=== PATIENT | female | born 1940 | race Caucasian/White ===

== ENCOUNTER 2023-09-14 14:06 | Inpatient (IN) | payer MEDICARE ==
[~2023-09-14] VITALS: Ht 152.4 cm; Wt 64.0 kg
[2023-09-14] MEDS ORDERED: HYDROCODONE/APAP 5/325MG TABLET ONE (16:22)
[2023-09-14] MEDS ORDERED: LOSA50TA39 PO (16:23)
[2023-09-14] MEDS ORDERED: DULO60CA45 PO (16:23)
[2023-09-14] MEDS ORDERED: ROSU5TAB PO (16:23)
[2023-09-14] MEDS ORDERED: ONDANSETRON HCL/PF 4 MG/2 ML VIAL IVP PRN (17:00)
[2023-09-14] MEDS ORDERED: ACETAMINOPHEN 325 MG TABLET PO PRN (17:00)
[2023-09-14] MEDS ORDERED: HYDROCODONE/APAP 5/325MG TABLET PO ONE (17:00)
[2023-09-14] MEDS ORDERED: Z GUARD REMEDY 4 OZ OINT TP PRN (17:00)
[2023-09-14] MEDS ORDERED: MAG HYDROX/AL HYDROX/SIMETH 30 ML UDC PO PRN (17:00)
[2023-09-14] MEDS ORDERED: HYDROMORPHONE INJ 2 MG/ML DISP.SYRIN IV PRN (17:00)
[2023-09-14] MEDS ORDERED: ZOLPIDEM TARTRATE 5 MG TABLET PO PRN (17:00)
[2023-09-14] MEDS ORDERED: MAGNESIUM HYDROXIDE 30 ML UDC PO PRN (17:00)
[2023-09-14 18:00] VITALS: BP 141/94; TEMP 98.8; O2SAT 94
[2023-09-14 20:00] VITALS: BP 143/104; TEMP 97.5; O2SAT 95
[2023-09-14] MEDS: ATORVASTATIN 10 MG TABLET PO SCH (22:22)
[2023-09-14] MEDS: HYDROCODONE/APAP 5/325MG TABLET PO PRN (22:23)
[2023-09-15 01:46] VITALS: BP 142/95
[2023-09-15] MEDS: HYDROMORPHONE 1 MG/1 ML DISP.SYRIN IV PRN (01:55)
[2023-09-15] MEDS: IV NS 0.9% 1,000 ML IV PRN ×2 (01:55→16:40)
[2023-09-15 07:22] LABS: BASOPHILS % (AUTO) 0.3 % (0.0-2.0); EOSINOPHILS % (AUTO) 0.4 % (0.0-6.0); HEMATOCRIT 42 % (33-45); HEMOGLOBIN 14.5 g/dL (11.5-14.8); LYMPHOCYTES # (AUTO) 1.3 K/uL (0.8-4.8); LYMPHOCYTES % (AUTO) 12.4 % (20.0-44.0); MEAN CORPUSCULAR HEMOGLOBIN 32 PG (26.0-33.0); MEAN CORPUSCULAR HGB CONC 35 g/dl (31.0-36.0); MEAN CORPUSCULAR VOLUME 92 fL (82-100); MONOCYTES # (AUTO) 0.8 K/uL (0.1-1.30); MONOCYTES % (AUTO) 7.9 % (2.0-12.0); NEUTROPHILS # (AUTO) 8.4 K/uL (1.8-8.9); PLATELET COUNT (AUTO) 226 K/uL (150-450); RED BLOOD CELL COUNT(AUTO) 4.56 MIL/uL (4.0-5.2); RED CELL DISTRIBUTION WIDTH 13.7 % (11.5-15.0); WHITE BLOOD COUNT (AUTO) 10.6 K/uL (4.3-11.0)
[2023-09-15 07:27] LABS: CALCIUM, SERUM 9.5 mg/dL (8.5-10.1); CREATININE 0.9 mg/dL (0.6-1.3); MAGNESIUM 1.8 mg/dL (1.8-2.4); PHOSPHORUS 3.6 mg/dL (2.5-4.9); POTASSIUM 3.5 mmol/L (3.5-5.1)
[2023-09-15] MEDS: DULOXETINE HCL 30 MG CAPSULE.DR PO SCH (09:15)
[2023-09-15] MEDS: LOSARTAN POTASSIUM 50 MG TABLET PO SCH (09:16)
[2023-09-15 11:20] LABS: APPEARANCE,URINE CLEAR (CLEAR); BILIRUBIN,URINE NEGATIVE (NEGATIVE); BLOOD, URINE 1+ Ery/uL (NEGATIVE); COLOR,URINE YELLOW (YELLOW); KETONES,URINE NEGATIVE (NEGATIVE); LEUKOCYTE ESTERASE ,URINE 1+ (NEGATIVE); NITRITE, URINE NEGATIVE (NEGATIVE); PH,URINE 6.5 (5.0-8.0); PROTEIN,URINE NEGATIVE (NEGATIVE); UGLUCOSE NEGATIVE (NEGATIVE); UROBILINOGEN,URINE 0.2 EU/dL (0.2)
[2023-09-15 11:27] LABS: ADD URINE CULTURE YES; BACTERIA,URINE Rare /HPF (None Seen); SQUAMOUS EPITHELIAL CELL,UR Few /HPF (None Seen)
[2023-09-15] MEDS: HYDROCODONE/APAP 5/325MG TABLET PO PRN (13:07)
[2023-09-15] MEDS: CEFTRIAXONE 1 G in IV D5W 50 ML IV SCH (13:07)
[2023-09-15] MEDS: HYDROCODONE/APAP 10/325MG TABLET PO PRN (18:38)
[2023-09-15 20:00] VITALS: BP 133/78; TEMP 97.2; O2SAT 94
[2023-09-15 20:38] VITALS: BP 160/79; TEMP 97.2; O2SAT 94
[2023-09-15] MEDS: ATORVASTATIN 10 MG TABLET PO SCH (21:36)
[2023-09-16] MEDS: HYDROMORPHONE 1 MG/1 ML DISP.SYRIN IV PRN ×2 (01:32→17:21)
[2023-09-16] MEDS: IV NS 0.9% 1,000 ML IV PRN ×2 (04:20→18:20)
[2023-09-16 08:00] VITALS: BP 155/92; TEMP 98.4; O2SAT 92
[2023-09-16] MEDS: DULOXETINE HCL 30 MG CAPSULE.DR PO SCH (08:45)
[2023-09-16] MEDS: LOSARTAN POTASSIUM 50 MG TABLET PO SCH (08:45)
[2023-09-16] MEDS: CEFTRIAXONE 1 G in IV D5W 50 ML IV SCH (11:06)
[2023-09-16 16:00] VITALS: BP 163/83; TEMP 98.1; O2SAT 94
[2023-09-16 20:00] VITALS: BP 141/71; TEMP 98.4; O2SAT 94
[2023-09-16] MEDS: ATORVASTATIN 10 MG TABLET PO SCH (22:46)
[2023-09-17] MEDS: IV NS 0.9% 1,000 ML IV PRN (06:28)
[2023-09-17 08:30] VITALS: BP 151/96; TEMP 98.4; O2SAT 99
[2023-09-17] MEDS: LOSARTAN POTASSIUM 50 MG TABLET PO SCH (09:10)
[2023-09-17] MEDS: DULOXETINE HCL 30 MG CAPSULE.DR PO SCH (09:11)
[2023-09-17] MEDS: HYDROMORPHONE 1 MG/1 ML DISP.SYRIN IV PRN (10:28)
[2023-09-17] MEDS: CEFTRIAXONE 1 G in IV D5W 50 ML IV SCH (12:19)
[2023-09-17] MEDS ORDERED: NITR100C15 PO (12:27)
[2023-09-17] MEDS: HYDROCODONE/APAP 10/325MG TABLET PO PRN (15:54)
[2023-09-17 16:00] VITALS: BP 127/84; TEMP 98.4; O2SAT 94
[2023-09-17 16:45] VITALS: BP 165/84
[2023-09-17] MEDS ORDERED: hydrALAZINE HCL 25 MG TABLET PO ONE (17:30)
[2023-09-17 18:00] VITALS: BP 155/75; TEMP 98.2; O2SAT 96
== END 2023-09-17 20:00 | disposition short-term general hospital (02) | DRG 536 ==
LOC: ER 14:08 → MED 17:41 → UNDODISIN 09-17 14:45
PROVIDERS: ADMIT Nurse Practitioner Acute Care; ATTEND Internal Medicine
DX: S32.592A Other specified fracture of left pubis, initial encounter for closed fracture (principal); N39.0 Urinary tract infection, site not specified; E78.5 Hyperlipidemia, unspecified; I10 Essential (primary) hypertension; N28.9 Disorder of kidney and ureter, unspecified; W10.1XXA Fall (on)(from) sidewalk curb, initial encounter; R26.89 Other abnormalities of gait and mobility; M51.36 Other intervertebral disc degeneration, lumbar region; Y93.9 Activity, unspecified; Y92.009 Unspecified place in unspecified non-institutional (private) residence as the place of occurrence of the external cause
CPT/HCPCS: 36415; 70450-TC; 71045-TC; 72125-TC; 72131-TC; 72192-TC; 73502; 80048-TC; 81001; 83735-TC; 84100-TC; 85025-TC; 87086-TC; 97110-TC; 97116-TC; 97530-TC; A4223; G0378; J0696; J1170; J7030; J7060

== ENCOUNTER 2023-11-11 20:35 | Inpatient (IN) | payer MEDICARE ==
[~2023-11-11] VITALS: Ht 152.4 cm; Wt 66.2 kg
[~2023-11-11 20:35] MED LIST: CIPR500T5 PO; DULO60CA45 PO; LOSA50TA39 PO; NITR100C15 PO; ROSU5TAB PO
[2023-11-11 21:07] LABS: BASOPHILS # (AUTO) 0.1 K/uL (0.0-0.2); BASOPHILS % (AUTO) 0.2 % (0.0-2.0); EOSINOPHILS % (AUTO) 0.1 % (0.0-6.0); HEMATOCRIT 36 % (33-45); HEMOGLOBIN 11.8 g/dL (11.5-14.8); LYMPHOCYTES # (AUTO) 0.4 K/uL (0.8-4.8); MEAN CORPUSCULAR HEMOGLOBIN 29 PG (26.0-33.0); MEAN CORPUSCULAR HGB CONC 33 g/dl (31.0-36.0); MEAN CORPUSCULAR VOLUME 88 fL (82-100); MONOCYTES # (AUTO) 0.5 K/uL (0.1-1.30); MONOCYTES % (AUTO) 1.3 % (2.0-12.0); NEUTROPHILS # (AUTO) 37.4 K/uL (1.8-8.9); NEUTROPHILS % (AUTO) 97.4 % (43.0-81.0); PLATELET COUNT (AUTO) 307 K/uL (150-450); RED BLOOD CELL COUNT(AUTO) 4.05 MIL/uL (4.0-5.2); RED CELL DISTRIBUTION WIDTH 15.8 % (11.5-15.0)
[2023-11-11 21:12] LABS: WHITE BLOOD COUNT (AUTO) 38.4 K/uL (4.3-11.0)
[2023-11-11 21:16] LABS: CALCIUM, SERUM 9.5 mg/dL (8.5-10.1); CARBON DIOXIDE 18 mmol/L (21-32); CHLORIDE 96 mmol/L (98-107); CREATININE 1.7 mg/dL (0.6-1.3); GLUCOSE 168 mg/dL (74-106); POTASSIUM 3.7 mmol/L (3.5-5.1); SODIUM SERUM 131 mmol/L (136-145); UREA NITROGEN, BLOOD 23 mg/dL (7-18)
[2023-11-11 21:20] LABS: INR 1.26 (0.91-1.10); PARTIAL THROMBOPLASTIN TIME 31.9 SEC (24.3-34.3); PROTHROMBIN TIME 12.9 SECS (9.2-11.1)
[2023-11-11 21:22] LABS: ALANINE AMINOTRANSFERASE 947 U/L (12-78); ALBUMIN 2.7 g/dL (3.4-5.0); ALKALINE PHOSPHATASE 528 U/L (46-116); BILIRUBIN,DIRECT 3.9 mg/dL (0.0-0.2); BILIRUBIN,TOTAL 4.9 mg/dL (0.2-1.0); TOTAL PROTEIN, SERUM 6.4 g/dL (6.4-8.2)
[2023-11-11 21:28] LABS: LACTIC ACID 8.6 mmol/L (0.4-2.0)
[2023-11-11] MEDS ORDERED: PIPERACI/TAZO 3.375GM/D5W 50ML PB IV ONE (21:28)
[2023-11-11] MEDS ORDERED: ONDANSETRON HCL/PF 4 MG/2 ML VIAL ONE (21:28)
[2023-11-11] MEDS ORDERED: MORPHINE SULFATE INJ 4 MG/ML DISP.SYRIN ONE (21:29)
[2023-11-11] MEDS: PIPERACILLIN /TAZOBACTAM 3.375 G in IV D5W 50 ML IV ONE (21:30)
[2023-11-11] MEDS: MORPHINE SULFATE INJ 2 MG/ML DISP.SYRIN IV ONE (21:30)
[2023-11-11] MEDS: ONDANSETRON HCL/PF - ER 4 MG/2 ML VIAL IV ONE (21:30)
[2023-11-11] MEDS: IV NS 0.9% 1,000 ML BAG IV ONE (21:30)
[2023-11-11 21:32] LABS: SERUM AMMONIA 17 umol/L (11-32)
[2023-11-11 22:04] LABS: ASPARTATE AMINOTRANSFERASE 897 U/L (15-37)
[2023-11-11 22:29] LABS: BAND % (MANUAL) 19 % (0.0-5.0); LYMPHOCYTES % (MANUAL) 1 % (16-48); MONOCYTES % (MANUAL) 2 % (0-11.0); NEUTROPHILS % (MANUAL) 78 (42-76)
[2023-11-11 22:30] LABS: PLATELET ESTIMATE ADEQU; THYROID STIMULATING HORMONE 3.198 uIU/mL (0.358-3.74)
[2023-11-11 22:39] LABS: APPEARANCE,URINE CLOUDY (CLEAR); BILIRUBIN,URINE 3+ (NEGATIVE); BLOOD, URINE TRACE-INTA Ery/uL (NEGATIVE); COLOR,URINE YELLOW (YELLOW); KETONES,URINE TRACE mg/dL (NEGATIVE); LEUKOCYTE ESTERASE ,URINE TRACE (NEGATIVE); NITRITE, URINE POSITIVE (NEGATIVE); PROTEIN,URINE 1+ mg/dl (NEGATIVE); UGLUCOSE NEGATIVE (NEGATIVE)
[2023-11-11 23:12] LABS: ADD URINE CULTURE YES; BACTERIA,URINE Many /HPF (None Seen); SQUAMOUS EPITHELIAL CELL,UR Moderate /HPF (None Seen)
[2023-11-11] MEDS ORDERED: MAG HYDROX/AL HYDROX/SIMETH 30 ML UDC PO PRN (23:30)
[2023-11-11] MEDS ORDERED: MAGNESIUM HYDROXIDE 30 ML UDC PO PRN (23:30)
[2023-11-11] MEDS ORDERED: Z GUARD REMEDY 4 OZ OINT TP PRN (23:30)
[2023-11-11] MEDS ORDERED: ONDANSETRON HCL/PF 4 MG/2 ML VIAL IVP PRN (23:30)
[2023-11-12] VITALS (48 sets, daily range): BP systolic 78–143; BP diastolic 41–87; TEMP 97.7–98.7; O2SAT 87–98
[2023-11-12] MEDS ORDERED: VANCOMYCIN 1 GM /D5W 250 ML PB IV ONE (01:17)
[2023-11-12] MEDS: VANCOMYCIN 1 GM in IV D5W 250ml IV ONE (01:18)
[2023-11-12] MEDS: IV NS 0.9% 1,000 ML IV PRN (01:18)
[2023-11-12] MEDS: PIPERACI/TAZO 3.375GM/D5W 50ML PB IV ONE (03:19)
[2023-11-12] MEDS: NOREPINEPHRINE 8MG/250ML RTU 250 ML IV ONE (03:21)
[2023-11-12] MEDS: NOREPINEPHRINE 8 MG in IV NS 0.9% 250 ML IV PRN (03:23)
[2023-11-12] MEDS: PIPERACILLIN /TAZOBACTAM 3.375 G in IV D5W 50 ML IV SCH (04:58)
[2023-11-12] MEDS: HYDROCORTISONE SOD SUCCINATE 100 MG/2 ML VIAL IV SCH (05:00)
[2023-11-12 07:49] LABS: BASOPHILS # (AUTO) 0.1 K/uL (0.0-0.2); BASOPHILS % (AUTO) 0.2 % (0.0-2.0); EOSINOPHILS # (AUTO) 0.2 K/uL (0.0-0.7); EOSINOPHILS % (AUTO) 0.5 % (0.0-6.0); HEMATOCRIT 31 % (33-45); HEMOGLOBIN 10.4 g/dL (11.5-14.8); LYMPHOCYTES # (AUTO) 0.9 K/uL (0.8-4.8); LYMPHOCYTES % (AUTO) 1.7 % (20.0-44.0); MEAN CORPUSCULAR HEMOGLOBIN 30 PG (26.0-33.0); MEAN CORPUSCULAR HGB CONC 34 g/dl (31.0-36.0); MEAN CORPUSCULAR VOLUME 89 fL (82-100); MONOCYTES # (AUTO) 1.7 K/uL (0.1-1.30); MONOCYTES % (AUTO) 3.1 % (2.0-12.0); NEUTROPHILS # (AUTO) 52.1 K/uL (1.8-8.9); NEUTROPHILS % (AUTO) 94.5 % (43.0-81.0); PLATELET COUNT (AUTO) 165 K/uL (150-450); RED BLOOD CELL COUNT(AUTO) 3.48 MIL/uL (4.0-5.2); RED CELL DISTRIBUTION WIDTH 15.4 % (11.5-15.0)
[2023-11-12 08:05] LABS: WHITE BLOOD COUNT (AUTO) 55.1 K/uL (4.3-11.0)
[2023-11-12 08:20] LABS: CALCIUM, SERUM 8.8 mg/dL (8.5-10.1); CARBON DIOXIDE 19 mmol/L (21-32); CHLORIDE 100 mmol/L (98-107); CREATININE 1.8 mg/dL (0.6-1.3); GLUCOSE 198 mg/dL (74-106); POTASSIUM 4.1 mmol/L (3.5-5.1); SODIUM SERUM 134 mmol/L (136-145); UREA NITROGEN, BLOOD 27 mg/dL (7-18)
[2023-11-12 08:24] LABS: HDL CHOLESTEROL 14 mg/dL (40-60); LDL 9 mg/dL (0-99); TRIGLYCERIDES 136 mg/dL (30-150)
[2023-11-12 08:29] LABS: LACTIC ACID 3.1 mmol/L (0.4-2.0)
[2023-11-12 08:32] LABS: ALANINE AMINOTRANSFERASE 767 U/L (12-78); ALBUMIN 2.3 g/dL (3.4-5.0); ALKALINE PHOSPHATASE 327 U/L (46-116); ASPARTATE AMINOTRANSFERASE 727 U/L (15-37); BILIRUBIN,DIRECT 3.7 mg/dL (0.0-0.2); BILIRUBIN,TOTAL 4.2 mg/dL (0.2-1.0); MAGNESIUM 1.7 mg/dL (1.8-2.4); PHOSPHORUS 4.1 mg/dL (2.5-4.9); TOTAL PROTEIN, SERUM 5.7 g/dL (6.4-8.2)
[2023-11-12] MEDS ORDERED: AMLO-212 PO (08:53)
[2023-11-12] MEDS: PIPERACILLIN /TAZOBACTAM 3.375 G in IV D5W 100 ML IV SCH (08:53)
[2023-11-12] MEDS ORDERED: METH500T6 PO (08:53)
[2023-11-12] MEDS ORDERED: SENN-202 PO (08:53)
[2023-11-12] MEDS ORDERED: PREG-57 PO (08:53)
[2023-11-12] MEDS ORDERED: CELE200C PO (08:53)
[2023-11-12] MEDS: PANTOPRAZOLE 40 MG VIAL IV SCH (08:54)
[2023-11-12 09:18] LABS: CHOLESTEROL 44 mg/dL (<200)
[2023-11-12] MEDS ORDERED: PIPERACILLIN /TAZOBACTAM 3.375 G in IV D5W 100 ML IV SCH (10:00)
[2023-11-12 10:59] LABS: BAND % (MANUAL) 9 % (0.0-5.0); EOSINOPHILS % (MANUAL) 0 % (0-4); LYMPHOCYTES % (MANUAL) 5 % (16-48); MONOCYTES % (MANUAL) 4 % (0-11.0); NEUTROPHILS % (MANUAL) 82 (42-76); PLATELET ESTIMATE ADEQUATE
[2023-11-12] MEDS: MGSO4/D5W 100 ML IV SCH (11:00)
[2023-11-12] MEDS: PREGABALIN 25 MG CAPSULE PO SCH (22:18)
[2023-11-12] MEDS: ATORVASTATIN 10 MG TABLET PO SCH (22:18)
[2023-11-12] MEDS: METHOCARBAMOL (500MG) 500 MG TABLET PO SCH (22:18)
[2023-11-12] MEDS: IV NS 0.9% 250 ML IV PRN (23:44)
[2023-11-13] VITALS (25 sets, daily range): BP systolic 90–136; BP diastolic 40–72; TEMP 97.5–98.7; O2SAT 92–99
[2023-11-13] MEDS ORDERED: VANCOMYCIN 500 MG in IV D5W 100 ML IV SCH (01:00)
[2023-11-13 05:09] LABS: CALCIUM, SERUM 8.2 mg/dL (8.5-10.1); CARBON DIOXIDE 22 mmol/L (21-32); CHLORIDE 107 mmol/L (98-107); CREATININE 1.5 mg/dL (0.6-1.3); GLUCOSE 146 mg/dL (74-106); POTASSIUM 3.7 mmol/L (3.5-5.1); SODIUM SERUM 138 mmol/L (136-145); UREA NITROGEN, BLOOD 32 mg/dL (7-18)
[2023-11-13] MEDS: PANTOPRAZOLE 40 MG TABLET.DR PO SCH (07:30)
[2023-11-13 08:06] LABS: BASOPHILS # (AUTO) 0.1 K/uL (0.0-0.2); BASOPHILS % (AUTO) 0.2 % (0.0-2.0); EOSINOPHILS # (AUTO) 2.4 K/uL (0.0-0.7); EOSINOPHILS % (AUTO) 6.8 % (0.0-6.0); HEMATOCRIT 28 % (33-45); HEMOGLOBIN 9.1 g/dL (11.5-14.8); LYMPHOCYTES # (AUTO) 0.9 K/uL (0.8-4.8); LYMPHOCYTES % (AUTO) 2.5 % (20.0-44.0); MEAN CORPUSCULAR HEMOGLOBIN 30 PG (26.0-33.0); MEAN CORPUSCULAR HGB CONC 33 g/dl (31.0-36.0); MEAN CORPUSCULAR VOLUME 89 fL (82-100); MONOCYTES # (AUTO) 1.2 K/uL (0.1-1.30); MONOCYTES % (AUTO) 3.5 % (2.0-12.0); NEUTROPHILS # (AUTO) 30.5 K/uL (1.8-8.9); PLATELET COUNT (AUTO) 122 K/uL (150-450); RED BLOOD CELL COUNT(AUTO) 3.08 MIL/uL (4.0-5.2); RED CELL DISTRIBUTION WIDTH 15.9 % (11.5-15.0)
[2023-11-13] MEDS: LOSARTAN POTASSIUM 50 MG TABLET PO SCH (08:35)
[2023-11-13 08:36] LABS: ALBUMIN 1.6 g/dL (3.4-5.0); BILIRUBIN,DIRECT 0.8 mg/dL (0.0-0.2); TOTAL PROTEIN, SERUM 4.7 g/dL (6.4-8.2)
[2023-11-13] MEDS: DULOXETINE HCL 30 MG CAPSULE.DR PO SCH (08:36)
[2023-11-13] MEDS: AMLODIPINE BESYLATE 5 MG TABLET PO SCH (08:36)
[2023-11-13 10:36] LABS: ANISOCYTOSIS 1+; BAND % (MANUAL) 10 % (0.0-5.0); BASOPHILS % (MANUAL) 0 % (0.0-2.0); EOSINOPHILS % (MANUAL) 8 % (0-4); LYMPHOCYTES % (MANUAL) 6 % (16-48); MONOCYTES % (MANUAL) 5 % (0-11.0); NEUTROPHILS % (MANUAL) 71 (42-76); PLATELET ESTIMATE DECREASED
[2023-11-13] MEDS: POLYETHYLENE GLYCOL 3350 17 GM POWD.PACK PO SCH (21:15)
[2023-11-13] MEDS: MEROPENEM 1 G in IV NS 0.9% 100 ML IV SCH (21:15)
[2023-11-14] VITALS (7 sets, daily range): BP systolic 105–124; BP diastolic 52–83; TEMP 97.5–98.4; O2SAT 95–100
[2023-11-14 11:22] LABS: EOSINOPHILS % (AUTO) 0.1 % (0.0-6.0); HEMATOCRIT 32 % (33-45); HEMOGLOBIN 10.6 g/dL (11.5-14.8); LYMPHOCYTES # (AUTO) 1.2 K/uL (0.8-4.8); LYMPHOCYTES % (AUTO) 3.7 % (20.0-44.0); MEAN CORPUSCULAR HEMOGLOBIN 29 PG (26.0-33.0); MEAN CORPUSCULAR HGB CONC 33 g/dl (31.0-36.0); MEAN CORPUSCULAR VOLUME 90 fL (82-100); MONOCYTES # (AUTO) 0.7 K/uL (0.1-1.30); MONOCYTES % (AUTO) 2.2 % (2.0-12.0); NEUTROPHILS # (AUTO) 30.2 K/uL (1.8-8.9); PLATELET COUNT (AUTO) 141 K/uL (150-450); RED CELL DISTRIBUTION WIDTH 16.3 % (11.5-15.0)
[2023-11-14 11:23] LABS: WHITE BLOOD COUNT (AUTO) 32.1 K/uL (4.3-11.0)
[2023-11-14 11:48] LABS: ALBUMIN 1.9 g/dL (3.4-5.0); BILIRUBIN,DIRECT 0.4 mg/dL (0.0-0.2); BILIRUBIN,TOTAL 0.8 mg/dL (0.2-1.0); CALCIUM, SERUM 8.8 mg/dL (8.5-10.1); CREATININE 1.3 mg/dL (0.6-1.3); POTASSIUM 4.2 mmol/L (3.5-5.1); TOTAL PROTEIN, SERUM 5.3 g/dL (6.4-8.2)
[2023-11-14 12:10] LABS: ANISOCYTOSIS 1+; BAND % (MANUAL) 8 % (0.0-5.0); BASOPHILS % (MANUAL) 0 % (0.0-2.0); EOSINOPHILS % (MANUAL) 2 % (0-4); LYMPHOCYTES % (MANUAL) 6 % (16-48); MONOCYTES % (MANUAL) 3 % (0-11.0); NEUTROPHILS % (MANUAL) 81 (42-76); OVALOCYTES 1+; PLATELET ESTIMATE DECREASED
[2023-11-14] MEDS: ACETAMINOPHEN 325 MG TABLET PO PRN (13:28)
[2023-11-14] MEDS ORDERED: MORPHINE SULFATE INJ 2 MG/ML DISP.SYRIN IV PRN (17:30)
[2023-11-14] MEDS: HYDROCODONE/APAP 5/325MG TABLET PO PRN (18:25)
[2023-11-14] MEDS: MEROPENEM 1 G in IV NS 0.9% 100 ML IV SCH (20:10)
[2023-11-15] VITALS: BP 128/63; TEMP 97.7; O2SAT 100
[2023-11-15 01:07] VITALS: O2SAT 98
[2023-11-15 04:00] VITALS: BP 126/63; TEMP 97.3; O2SAT 98
[2023-11-15 08:00] VITALS: BP 138/68; TEMP 97.5; O2SAT 98
[2023-11-15 08:30] LABS: HEMATOCRIT 34 % (33-45); HEMOGLOBIN 11.4 g/dL (11.5-14.8); LYMPHOCYTES # (AUTO) 1.2 K/uL (0.8-4.8); LYMPHOCYTES % (AUTO) 5.8 % (20.0-44.0); MEAN CORPUSCULAR HEMOGLOBIN 30 PG (26.0-33.0); MEAN CORPUSCULAR HGB CONC 33 g/dl (31.0-36.0); MEAN CORPUSCULAR VOLUME 90 fL (82-100); MONOCYTES # (AUTO) 0.6 K/uL (0.1-1.30); MONOCYTES % (AUTO) 2.9 % (2.0-12.0); NEUTROPHILS # (AUTO) 19.6 K/uL (1.8-8.9); NEUTROPHILS % (AUTO) 91.3 % (43.0-81.0); PLATELET COUNT (AUTO) 143 K/uL (150-450); RED BLOOD CELL COUNT(AUTO) 3.83 MIL/uL (4.0-5.2); RED CELL DISTRIBUTION WIDTH 16.1 % (11.5-15.0); WHITE BLOOD COUNT (AUTO) 21.5 K/uL (4.3-11.0)
[2023-11-15 08:36] LABS: CALCIUM, SERUM 8.2 mg/dL (8.5-10.1); CREATININE 1.1 mg/dL (0.6-1.3); POTASSIUM 4.6 mmol/L (3.5-5.1)
[2023-11-15 08:43] LABS: ALBUMIN 1.9 g/dL (3.4-5.0); BILIRUBIN,DIRECT 0.3 mg/dL (0.0-0.2); BILIRUBIN,TOTAL 0.6 mg/dL (0.2-1.0); TOTAL PROTEIN, SERUM 5.2 g/dL (6.4-8.2)
[2023-11-15 16:00] VITALS: BP 142/81; TEMP 98; O2SAT 99
[2023-11-15 20:00] VITALS: BP 130/63; TEMP 98.4; O2SAT 95
[2023-11-16 04:00] VITALS: BP 140/70; TEMP 97.5; O2SAT 96
[2023-11-16 07:31] LABS: BASOPHILS # (AUTO) 0.1 K/uL (0.0-0.2); BASOPHILS % (AUTO) 0.3 % (0.0-2.0); EOSINOPHILS # (AUTO) 0.4 K/uL (0.0-0.7); EOSINOPHILS % (AUTO) 1.8 % (0.0-6.0); HEMATOCRIT 35 % (33-45); HEMOGLOBIN 11.9 g/dL (11.5-14.8); LYMPHOCYTES # (AUTO) 2.3 K/uL (0.8-4.8); LYMPHOCYTES % (AUTO) 11.2 % (20.0-44.0); MEAN CORPUSCULAR HEMOGLOBIN 30 PG (26.0-33.0); MEAN CORPUSCULAR HGB CONC 34 g/dl (31.0-36.0); MEAN CORPUSCULAR VOLUME 89 fL (82-100); MONOCYTES # (AUTO) 2.4 K/uL (0.1-1.30); MONOCYTES % (AUTO) 11.4 % (2.0-12.0); NEUTROPHILS # (AUTO) 15.8 K/uL (1.8-8.9); NEUTROPHILS % (AUTO) 75.3 % (43.0-81.0); PLATELET COUNT (AUTO) 167 K/uL (150-450); RED BLOOD CELL COUNT(AUTO) 3.99 MIL/uL (4.0-5.2); RED CELL DISTRIBUTION WIDTH 15.7 % (11.5-15.0); WHITE BLOOD COUNT (AUTO) 20.9 K/uL (4.3-11.0)
[2023-11-16 08:00] VITALS: BP 158/72; TEMP 97.5; O2SAT 98
[2023-11-16 08:26] LABS: ALBUMIN 1.7 g/dL (3.4-5.0); BILIRUBIN,DIRECT 0.2 mg/dL (0.0-0.2); BILIRUBIN,TOTAL 0.6 mg/dL (0.2-1.0); TOTAL PROTEIN, SERUM 4.8 g/dL (6.4-8.2)
[2023-11-16 08:36] LABS: CALCIUM, SERUM 8.4 mg/dL (8.5-10.1); CARBON DIOXIDE 20 mmol/L (21-32); CHLORIDE 107 mmol/L (98-107); CREATININE 0.9 mg/dL (0.6-1.3); GLUCOSE 137 mg/dL (74-106); POTASSIUM 3.8 mmol/L (3.5-5.1); SODIUM SERUM 137 mmol/L (136-145); UREA NITROGEN, BLOOD 28 mg/dL (7-18)
[2023-11-16] MEDS: LORAZEPAM 0.5 MG TABLET PO PRN (10:09)
[2023-11-16 12:00] VITALS: BP 158/72; TEMP 97.5; O2SAT 98
[2023-11-16] MEDS ORDERED: LORAZEPAM 0.5 MG TABLET PO PRN (12:30)
[2023-11-16 14:36] VITALS: O2SAT 98
[2023-11-16 20:00] VITALS: BP 141/69; TEMP 97.8; O2SAT 94
[2023-11-17 04:00] VITALS: BP 145/75; TEMP 98.2; O2SAT 92
[2023-11-17 07:42] LABS: BASOPHILS % (AUTO) 0.1 % (0.0-2.0); EOSINOPHILS # (AUTO) 0.2 K/uL (0.0-0.7); EOSINOPHILS % (AUTO) 1.8 % (0.0-6.0); HEMATOCRIT 36 % (33-45); HEMOGLOBIN 12.1 g/dL (11.5-14.8); LYMPHOCYTES # (AUTO) 1.5 K/uL (0.8-4.8); LYMPHOCYTES % (AUTO) 11.2 % (20.0-44.0); MEAN CORPUSCULAR HEMOGLOBIN 30 PG (26.0-33.0); MEAN CORPUSCULAR HGB CONC 34 g/dl (31.0-36.0); MEAN CORPUSCULAR VOLUME 88 fL (82-100); MONOCYTES # (AUTO) 1.5 K/uL (0.1-1.30); MONOCYTES % (AUTO) 10.9 % (2.0-12.0); NEUTROPHILS # (AUTO) 10.2 K/uL (1.8-8.9); PLATELET COUNT (AUTO) 190 K/uL (150-450); RED BLOOD CELL COUNT(AUTO) 4.07 MIL/uL (4.0-5.2); RED CELL DISTRIBUTION WIDTH 15.6 % (11.5-15.0); WHITE BLOOD COUNT (AUTO) 13.4 K/uL (4.3-11.0)
[2023-11-17 08:57] LABS: CALCIUM, SERUM 8.8 mg/dL (8.5-10.1); CREATININE 0.7 mg/dL (0.6-1.3); POTASSIUM 3.7 mmol/L (3.5-5.1)
[2023-11-17] MEDS: PREGABALIN 25 MG CAPSULE PO SCH (09:12)
[2023-11-17 09:21] LABS: BILIRUBIN,DIRECT 0.3 mg/dL (0.0-0.2); BILIRUBIN,TOTAL 0.9 mg/dL (0.2-1.0); TOTAL PROTEIN, SERUM 5.4 g/dL (6.4-8.2)
[2023-11-17 12:00] VITALS: BP 142/78; TEMP 98.5; O2SAT 95
[2023-11-17 20:00] VITALS: BP 144/83; TEMP 97.7; O2SAT 97
[2023-11-17] MEDS: ZOLPIDEM TARTRATE 5 MG TABLET PO PRN (21:58)
[2023-11-18 04:00] VITALS: BP 139/77; TEMP 97.9; O2SAT 97
[2023-11-18 08:00] VITALS: BP 140/73; TEMP 97.1; O2SAT 96
[2023-11-18 08:01] LABS: BASOPHILS % (AUTO) 0.1 % (0.0-2.0); EOSINOPHILS # (AUTO) 0.4 K/uL (0.0-0.7); HEMATOCRIT 35 % (33-45); LYMPHOCYTES # (AUTO) 1.5 K/uL (0.8-4.8); LYMPHOCYTES % (AUTO) 11.4 % (20.0-44.0); MEAN CORPUSCULAR HEMOGLOBIN 30 PG (26.0-33.0); MEAN CORPUSCULAR HGB CONC 34 g/dl (31.0-36.0); MEAN CORPUSCULAR VOLUME 89 fL (82-100); MONOCYTES % (AUTO) 7.3 % (2.0-12.0); NEUTROPHILS # (AUTO) 10.4 K/uL (1.8-8.9); NEUTROPHILS % (AUTO) 78.2 % (43.0-81.0); PLATELET COUNT (AUTO) 194 K/uL (150-450); RED BLOOD CELL COUNT(AUTO) 3.98 MIL/uL (4.0-5.2); RED CELL DISTRIBUTION WIDTH 15.5 % (11.5-15.0); WHITE BLOOD COUNT (AUTO) 13.3 K/uL (4.3-11.0)
[2023-11-18 08:20] LABS: CALCIUM, SERUM 8.7 mg/dL (8.5-10.1); CREATININE 0.8 mg/dL (0.6-1.3); POTASSIUM 3.5 mmol/L (3.5-5.1)
[2023-11-18 08:25] LABS: BILIRUBIN,DIRECT 0.3 mg/dL (0.0-0.2); TOTAL PROTEIN, SERUM 5.2 g/dL (6.4-8.2)
[2023-11-18 16:00] VITALS: BP 138/67; TEMP 96.7; O2SAT 94
== END 2023-11-18 20:46 | disposition home health service (06) | DRG 871 ==
LOC: ER 20:41 → TRANSITION 11-12 00:45 → ICU 11-12 02:02 → TELE1 11-13 18:47 → MEDSG1 11-15 10:53
PROVIDERS: ADMIT Nurse Practitioner Acute Care; ATTEND Internal Medicine
PROC: 05HB33Z Insertion of Infusion Device into Right Basilic Vein, Percutaneous Approach (ICD-10-PCS; principal; 2023-11-12)
DX: A41.50 Gram-negative sepsis, unspecified (principal); N17.0 Acute kidney failure with tubular necrosis; R65.21 Severe sepsis with septic shock; N39.0 Urinary tract infection, site not specified; K80.10 Calculus of gallbladder with chronic cholecystitis without obstruction; E87.1 Hypo-osmolality and hyponatremia; E87.20 Acidosis, unspecified; Z20.822 Contact with and (suspected) exposure to COVID-19; I10 Essential (primary) hypertension; E78.5 Hyperlipidemia, unspecified; Z85.3 Personal history of malignant neoplasm of breast; Z85.89 Personal history of malignant neoplasm of other organs and systems; Z79.899 Other long term (current) drug therapy; R74.01 Elevation of levels of liver transaminase levels; Z92.21 Personal history of antineoplastic chemotherapy; Z92.3 Personal history of irradiation; Z90.10 Acquired absence of unspecified breast and nipple; D64.9 Anemia, unspecified; M89.8X9 Other specified disorders of bone, unspecified site; B96.20 Unspecified Escherichia coli [E. coli] as the cause of diseases classified elsewhere; D69.6 Thrombocytopenia, unspecified; K59.00 Constipation, unspecified; Z87.440 Personal history of urinary (tract) infections; Z87.81 Personal history of (healed) traumatic fracture
CPT/HCPCS: 36410; 36415; 70450-TC; 71045-TC; 76700-TC; 78226; 80048-TC; 80061-TC; 80076-TC; 80202-TC; 81001; 82140-TC; 83605-TC; 83735-TC; 84100-TC; 84443-TC; 84484-TC; 85025-TC; 85730-TC; 87040-TC; 87081-TC; 87086-TC; 87186-TC; 94761-TC; 94799-TC; 97110-TC; 97112-TC; 97116-TC; 97530-TC; A4223; A9537; C9113; G0378; J1720; J2185; J2270; J2405; J2543; J3370; J3475; J3490; J7030; J7050; J7060